=== PATIENT | male | born 1995 | race Caucasian/White ===

== ENCOUNTER 2021-09-02 15:09 | Emergency (ER) | payer OTHER, SELFPAY ==
[2021-09-02 15:19] VITALS: BP 147/83; PULSE 83; RESP 18; TEMP 36.6; O2SAT 99
[2021-09-02] MEDS: LIDO 1%/SOD BICARB 8.4% (10ML) 10 ML SYRINGE INJ (16:05)
--- NOTE | 2021-09-02 16:26 | ED.WOUNDLAC ---
HPI - Wound/Laceration <LATOSHA Valdivia - Last Filed: 09/02/21 16:37> General Chief Complaint: Wound/Laceration Stated Complaint: Rt Index finger cut Time Seen by Provider: 09/02/21 15:41 Source: patient Mode of arrival: Ambulatory History of Present Illness HPI narrative: 26-year-old right-handed male presents to the emergency department 1 hour after cutting the tip of his index finger on his right hand palmar surface on a paper cone maker. He reports that it took about 1 hour for the bleeding to stop using manual pressure. He denies being on any blood thinners, any medical problems, he has never had sutures before. Reports that he did clean it with soap and water, it was not a dirty surface that he cut his finger on. He reports that his last tetanus was within 1 year. Patient tetanus UTD: Yes Review of Systems <LATOSHA Valdivia - Last Filed: 09/02/21 16:37> Review of Systems Narrative: General: denies fever, chills Head/Neck: denies headache, neck pain Eyes: denies visual changes, eye pain Cardio: denies chest pain, palpitations Respiratory: denies shortness of breath, cough GI: denies abdominal pain, nausea, vomiting, or diarrhea : denies dysuria, hematuria MSK: denies joint pain, muscle weakness Skin: denies rash, itching Neuro: denies numbness, tingling Exam <RICKI ValdiviaP - Last Filed: 09/02/21 16:37> Narrative Exam Narrative: Independently reviewed vitals signs and nursing notes. General: Awake, alert, nontoxic, no cardiorespiratory distress Head/Neck: Atraumatic, neck full range of motion Eyes: EOMI, conjunctiva normal Nose: nares patent, no rhinorrhea Mouth/Throat: moist mucus membranes, posterior pharynx normal, no oral lesions Cardio: Regular rate and rhythm, no peripheral edema Respiratory: respirations unlabored without wheezing, stridor, or rales. No retractions. GI: Abdomen soft, nontender MSK: Moves all extremities, neurovascularly intact, right hand 2nd digit with linear laceration approximately 1.5 cm across the palmar surface the distal phalange. Hemostasis achieved with manual pressure. wound examined in a bloodless field, without any evidence of tendon injury, contamination, foreign body or debris. Wound was cleansed thoroughly with saline and Betadine. Skin: Normal capillary refill, no rash Neuro: Normal speech and cognition, normal gait Initial Vital Signs Initial Vital Signs: Vital Signs Temperature 97.8 F 09/02/21 15:19 Pulse Rate 83 09/02/21 15:19 Respiratory Rate 18 09/02/21 15:19 Blood Pressure 147/83 H 09/02/21 15:19 Pulse Oximetry 99 09/02/21 15:19 <Betsy Serrato DO - Last Filed: 09/03/21 19:20> Initial Vital Signs Initial Vital Signs: Vital Signs Temperature 97.8 F 09/02/21 15:19 Pulse Rate 83 09/02/21 15:19 Respiratory Rate 18 09/02/21 15:19 Blood Pressure 147/83 H 09/02/21 15:19 Pulse Oximetry 99 09/02/21 15:19 Procedures <LATOSHA Valdivia - Last Filed: 09/02/21 16:37> Laceration Repair Laceration 1: Site: hand Side (If applicable): right Size (cm): 1.5 Description: clean Depth: simple, single layer Local Anesthetic: lidocaine 1% and with bicarb Amount of anesthesia used (mL): 2 Pre-repair: wound explored, irrigated extensively and deep structures intact Skin layer closed with: nylon Size (cm): 5-0 Number of sutures: 4 Technique: simple, interrupted Course <LATOSHA Valdivia - Last Filed: 09/02/21 16:37> Orders Ordered: Discontinued Medications Bacitracin (Bacitracin Oint 0.9 Gm Pckt) 1 applic TOP NOW ONE Stop: 09/02/21 16:27 Last Admin: 09/02/21 16:39 Dose: 1 applic Documented by: WILFREDO Lidocaine/Sodium Bicarbonate (Lido 1%/Sod Bicarb 8.4% (10ml) 10 Ml Syringe) 10 ml INJ NOW ONE Stop: 09/02/21 16:00 Last Admin: 09/02/21 16:05 Dose: 10 ml Documented by: WILFREDO Vital Signs Vital signs: Vital Signs - 8 hr 09/02/21 15:19 Temperature 97.8 F Pulse Rate 83 Respiratory Rate 18 Blood Pressure 147/83 H Pulse Oximetry 99 <Betsy Serrato DO - Last Filed: 09/03/21 19:20> Orders Ordered: Discontinued Medications Bacitracin (Bacitracin Oint 0.9 Gm Pckt) 1 applic TOP NOW ONE Stop: 09/02/21 16:27 Last Admin: 09/02/21 16:39 Dose: 1 applic Documented by: WILFREDO Lidocaine/Sodium Bicarbonate (Lido 1%/Sod Bicarb 8.4% (10ml) 10 Ml Syringe) 10 ml INJ NOW ONE Stop: 09/02/21 16:00 Last Admin: 09/02/21 16:05 Dose: 10 ml Documented by: WILFREDO Vital Signs Vital signs: Vital Signs - 8 hr 09/02/21 15:19 Temperature 97.8 F Pulse Rate 83 Respiratory Rate 18 Blood Pressure 147/83 H Pulse Oximetry 99 MDM - Wound/Laceration <LATOSHA Valdivia - Last Filed: 09/02/21 16:37> [facility] Narrative Medical decision making narrative: 26-year-old male presents to the emergency department 1 hour following a laceration to the palmar surface of his right hand index finger distal phalange. He has a 1.5 cm laceration, bleeding was controlled with manual pressure, after irrigation and wound cleansing, a digital block was performed with 1% lidocaine buffered with sodium bicarb, patient received 4 sutures. No evidence of tendon injury, contamination, or foreign body. Patient understands to follow-up with his primary care provider or return to the emergency department for any signs of infection, he may have the sutures taken out in 10 days. Patient is appropriate and amenable to discharge home. Vital signs are stable on repeat examination is unremarkable. Patient has been informed of results. Patient has been given strict return to ER precautions for any new or worsening symptoms. Patient understands to follow up closely with outpatient providers as instructed. Patient understands plan and agrees to discharge home. All questions and concerns answered at this time. Discharge Plan Departure Patient Disposition: Home Clinical Impression: Laceration Instructions: DI for Laceration Repair Activity Restrictions/Additional Instructions: *You have been diagnosed with A laceration to the tip of your 2nd finger on right hand. Please have the sutures removed in 10-14 days, you can come back here or go to the walk-in clinic, or anyone [place] who is qualified. Use antibiotic ointment and a Band-Aid keep it covered you can wash in dry your hands as usual, no antibiotics are necessary at this time however look for signs of infection which include redness, swelling, abnormal discharge from the wound, If he see this please come back to the emergency department or see your primary care provider for antibiotics at that time. Please put pressure on it if it starts bleeding keep the wrapped in the dressing today and keep it clean. Since she received her tetanus this year, you do not need another tetanus for 9 years. Good luck, stay safe. *What to do: *Please continue to take your regular medications as directed. [ ] New medication prescriptions sent to your pharmacy: [ ] [ ] New medication written as a paper prescription [x ] No new medications given *Please follow up with your primary care provider in 2-3 days, call for an appointment. Let them know you were seen in the Emergency Department and that we ask that you be seen in follow up. We will electronically transmit a record of today's note if your PCP is in our system *If you do not have a primary care provider please contact the [facility] Resource line at [phone]. They will ask some questions about your medical history and help get you set up with a doctor in the community. *Return to Emergency Department if you should have any new, worsening or concerning symptoms, such as [fever greater than 101F, chills, worsening pain, persistent vomiting or other bothersome symptoms] <Betsy Serrato, DO - Last Filed: 09/03/21 19:20> Cosign ED Attending Peri Attestation: I was immediately available in the department for consultation. Documentation has been reviewed. Patient has had laceration repaired by [employer].
[2021-09-02] MEDS: BACITRACIN OINT 0.9 GM PCKT 1 APPLIC TOP (16:39)
== END 2021-09-02 16:40 | disposition home or self-care (01) ==
PROVIDERS: Emergency Provider Nurse Practitioner Critical Care Medicine
DX: S61.210A Laceration without foreign body of right index finger without damage to nail, initial encounter (principal); W26.8XXA Contact with other sharp object(s), not elsewhere classified, initial encounter
CPT/HCPCS: 12041; 99283